=== PATIENT | male | born 1995 | race African-American/Black ===

== ENCOUNTER 2025-08-17 22:06 | Emergency (ER) | payer SELFPAY ==
[2025-08-17 22:09] VITALS: BP 162/107; PULSE 93; RESP 18; TEMP 36.8; O2SAT 99; BMI 34.3
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
[2025-08-17 22:39] VITALS: BP 135/88; PULSE 77; RESP 16; TEMP 36.6; O2SAT 98
== END 2025-08-17 22:49 | disposition home or self-care (01) ==
LOC: ED 22:48
PROVIDERS: Emergency Provider Emergency Medicine; Visit Provider Emergency Medicine
DX: T25.222A Burn of second degree of left foot, initial encounter (principal); X03.0XXA Exposure to flames in controlled fire, not in building or structure, initial encounter; T31.0 Burns involving less than 10% of body surface; R03.0 Elevated blood-pressure reading, without diagnosis of hypertension; F17.290 Nicotine dependence, other tobacco product, uncomplicated
CPT/HCPCS: 99282